=== PATIENT | male | born 1975 | race Caucasian/White ===

== ENCOUNTER → 2024-03-22 08:37 | Outpatient (REF) | payer OTHER, SELFPAY | LOC: HWRAD 08:37 | PROVIDERS: ATTENDING PHYSICIAN Student in an Organized Health Care Education/Training Program | DX: Z87.891 Personal history of nicotine dependence (principal) | CPT/HCPCS: 71271 ==

== ENCOUNTER → 2024-04-02 13:03 | Outpatient (REF) | payer OTHER, SELFPAY | LOC: MRI 3T 13:03 | PROVIDERS: ATTENDING PHYSICIAN Surgery; FAMILY PHYSICIAN Student in an Organized Health Care Education/Training Program | DX: C66.2 Malignant neoplasm of left ureter (principal) | CPT/HCPCS: 72197; 74183; A9575 ==